=== PATIENT | male | born 1995 | race Caucasian/White ===

== ENCOUNTER 2017-07-22 21:18 | Emergency (ER) | payer BC ==
[2017-07-22 21:35] VITALS: BP 126/67
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
== END 2017-07-22 21:45 | disposition home or self-care (01) ==
LOC: FB.ED 21:18
DX: H57.8 Other specified disorders of eye and adnexa (principal)
CPT/HCPCS: 99283